=== PATIENT | female | born 1995 | race Caucasian/White ===

== ENCOUNTER → 2020-03-14 | Outpatient (CLI) | payer BC ==
--- NOTE | 2020-03-14 11:16 | USB ---
Reason for exam: clinical finding. History: Family history of breast cancer in grandmother at age 70. Indicated problem(s): lump or thickening in the right breast. Physical Findings: Nurse Summary: lumps in right breast x 1 year, multiple movable nodularities in right breast (nurse lindsay). US Breast BILAT Right complete breast ultrasound includes all four quadrants, the retroareolar region and axilla. Finding demonstrates a 8 x 8 x 8mm mixed lesion at 5 o'clock and a 11 x 7 x 8mm mixed lesion at 8 o'clock. Innumerable cystic area right breast. Left complete breast ultrasound includes all four quadrants, the retroareolar region and axilla. Finding demonstrates no cystic or solid lesion seen. These results were verbally communicated with the patient and result sheet given to the patient on 03/14/20. ASSESSMENT: Probably benign, BI-RAD 3 RECOMMENDATION: Ultrasound of the right breast in 6 months.
== END | disposition home or self-care (01) ==
LOC: RADUSWWP 10:19
PROVIDERS: ATTEND Family Medicine
DX: N63.10 Unspecified lump in the right breast, unspecified quadrant (principal)

== ENCOUNTER 2024-09-21 09:13 | Emergency (ER) | payer OTHER, BC ==
[2024-09-21 09:30] VITALS: RESP 18; TEMP 97.5
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
[2024-09-21] MEDS: ACETAMINOPHEN TAB 500 MG TAB PO STA (09:59)
[2024-09-21] MEDS: ORPHENADRINE 30 MG/ML 2 ML VIAL IVP STA (10:00)
[2024-09-21] MEDS: ONDANSETRON 4 MG/2 ML VIAL IVP STA (10:00)
[2024-09-21] MEDS: SODIUM CHLORIDE 0.9% 1,000 ML IV ONE (10:01)
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
[2024-09-21] MEDS: KETOROLAC 15 MG/ML 1 ML VIAL IVP STA (10:28)
[2024-09-21 11:01] VITALS: BP 107/66; PULSE 73
== END 2024-09-21 11:01 | disposition home or self-care (01) ==
LOC: EC 09:13
DX: S13.4XXA Sprain of ligaments of cervical spine, initial encounter (principal); F17.290 Nicotine dependence, other tobacco product, uncomplicated; V89.2XXA Person injured in unspecified motor-vehicle accident, traffic, initial encounter; Y92.410 Unspecified street and highway as the place of occurrence of the external cause
CPT/HCPCS: 72125; 70450; 99284; 96374; 96375 ×2; 96361; J2360; J2405; J1885